=== PATIENT | male | born 1985 | race African-American/Black ===

== ENCOUNTER 2017-04-30 06:14 | Emergency (ER) | payer MEDICAID ==
[~2017-04-30] VITALS: Ht 188 cm; Wt 93.0 kg
[2017-04-30] MEDS ORDERED: ONDANSETRON 4MG ODT PO ONE (07:30)
[2017-04-30] MEDS ORDERED: HYDROCODONE/ACETAMINOPHEN 5/325MG TABLET PO ONE (07:30)
[2017-04-30 09:21] VITALS: BP 113/71
[2017-05-03] MEDS ORDERED: SULF1TAB48 PO (20:57)
[2017-05-03] MEDS ORDERED: CEPH500T PO (20:58)
== END 2017-04-30 09:27 | disposition home or self-care (01) ==
LOC: ER 07:36
DX: S90.31XA Contusion of right foot, initial encounter (principal); S93.401A Sprain of unspecified ligament of right ankle, initial encounter; F17.210 Nicotine dependence, cigarettes, uncomplicated; F12.10 Cannabis abuse, uncomplicated; W21.89XA Striking against or struck by other sports equipment, initial encounter; Y93.B3 Activity, free weights; Y92.39 Other specified sports and athletic area as the place of occurrence of the external cause
CPT/HCPCS: 29515; 73610; 73630; 99284; Q0162; Z7610

== ENCOUNTER 2017-05-02 13:17 | Emergency (ER) | payer MEDICAID ==
[~2017-05-02] VITALS: Ht 188 cm; Wt 92.0 kg
[2017-05-02 13:29] VITALS: BP 146/89
[2017-05-02] MEDS ORDERED: LIDOCAINE HCL 1% 20ML VIAL (Pyxis) INJ INFIL ONE (14:15)
[2017-05-02] MEDS ORDERED: AMPICILLIN SOD/SULBACTAM NA 3 G in SODIUM CHLORIDE 0.9% 100 ML IV SCH (14:45)
[2017-05-02 15:09] LABS: HEMATOCRIT. 37.1 % (42.0-52.0); HEMOGLOBIN. 12.6 g/dL (14.0-18.0); MEAN CORPUSCULAR HEMOGLOBIN 30.6 pg (28.0-32.0); MEAN PLATELET VOLUME 7.1 fl (7.4-10.4); PLATELET 408 x1000/uL (130-400); RED BLOOD CELL COUNT 4.12 mill/uL (4.7-6.1); RED CELL DISTRIBUTION WIDTH 12.9 % (11.6-14.6)
[2017-05-02 15:24] LABS: CARBON DIOXIDE 28 mEq/L (21-32); CHLORIDE 103 mEq/L (98-107)
[2017-05-02 15:48] LABS: PLATELET ESTIMATE NORMAL
[2017-05-02] MEDS ORDERED: HYDROCODONE/ACETAMINOPHEN 5/325MG TABLET PO ONE (16:15)
[2017-05-02] MEDS ORDERED: IBUPROFEN 600MG TABLET PO ONE (16:15)
[2017-05-03] MEDS ORDERED: SULF1TAB48 PO (20:57)
[2017-05-03] MEDS ORDERED: CEPH500T PO (20:58)
== END 2017-05-02 18:14 | disposition home or self-care (01) ==
LOC: ER 13:31
DX: L03.115 Cellulitis of right lower limb (principal)
CPT/HCPCS: 10060; 36415; 80053; 85025; 87040; 87070; 87077; 87205; 96365; 99284; J0295; J3490; X7700; Z7610; J7050

== ENCOUNTER 2017-05-08 09:57 | Emergency (ER) | payer MEDICAID ==
[~2017-05-08] VITALS: Ht 185.4 cm; Wt 92.0 kg
[~2017-05-08 09:57] MED LIST: CEPH500T PO; SULF1TAB48 PO
[2017-05-08 10:09] VITALS: BP 115/72
[2017-05-08] MEDS: POVIDONE-IODINE 10% TOPICAL SOLN 240ML TOP ONE (14:18)
[2017-05-08] MEDS: BACITRACIN ZINC OINT UDPKT TOP ONE (14:18)
== END 2017-05-08 14:28 | disposition home or self-care (01) ==
LOC: ER 10:36
DX: Z48.01 Encounter for change or removal of surgical wound dressing (principal); F12.10 Cannabis abuse, uncomplicated
CPT/HCPCS: 99283; A4246; J7030

== ENCOUNTER 2017-10-08 06:23 | Emergency (ER) | payer SELFPAY ==
[~2017-10-08] VITALS: Ht 188 cm; Wt 97.0 kg
[2017-10-08] MEDS ORDERED: IBUPROFEN 600MG TABLET PO ONE (07:15)
[2017-10-08 07:28] VITALS: BP 127/81
== END 2017-10-08 09:44 | disposition home or self-care (01) ==
LOC: ER 06:23
DX: M79.644 Pain in right finger(s) (principal); F17.210 Nicotine dependence, cigarettes, uncomplicated
CPT/HCPCS: 29130; 73140; 99284; Z7610

== ENCOUNTER 2017-10-10 10:34 | Emergency (ER) | payer SELFPAY ==
[~2017-10-10] VITALS: Ht 188 cm; Wt 99.0 kg
[2017-10-10 10:38] VITALS: BP 123/92
== END 2017-10-10 13:24 | disposition home or self-care (01) ==
LOC: ER 10:34
DX: S60.051D Contusion of right little finger without damage to nail, subsequent encounter (principal); X58.XXXD Exposure to other specified factors, subsequent encounter; Y93.89 Activity, other specified; Y99.8 Other external cause status; Y92.89 Other specified places as the place of occurrence of the external cause
CPT/HCPCS: 99281

== ENCOUNTER 2018-01-09 12:04 | Emergency (ER) | payer SELFPAY ==
[~2018-01-09] VITALS: Ht 188 cm; Wt 93.0 kg
[2018-01-09 14:00] VITALS: BP 128/81
== END 2018-01-09 13:58 | disposition home or self-care (01) ==
LOC: ER 12:04
DX: M79.672 Pain in left foot (principal); M79.671 Pain in right foot; L84 Corns and callosities; F17.200 Nicotine dependence, unspecified, uncomplicated; R03.0 Elevated blood-pressure reading, without diagnosis of hypertension
CPT/HCPCS: 73630; 99284